=== PATIENT | female | born 1960 | race African-American/Black ===

== ENCOUNTER 2021-07-24 14:02 | Outpatient (REF) | payer MEDICAID, SELFPAY ==
[2021-07-24 15:16] LABS: Binax Internal Control QC Valid; Binax Now Covid-19 Ag Negative (Negative)
== END 2021-07-24 14:03 | disposition home or self-care (01) ==
LOC: HO.HMGCLDS 14:02
PROVIDERS: Visit Provider Internal Medicine
DX: Z20.822 Contact with and (suspected) exposure to COVID-19 (principal)
CPT/HCPCS: 36415; C9803